=== PATIENT | female | born 1990 | race Caucasian/White ===

== ENCOUNTER 2019-09-09 15:06 | Emergency (ER) | payer BC ==
[~2019-09-09] VITALS: Ht 170.2 cm; Wt 72.6 kg
[2019-09-09 15:52] LABS: ABSOLUTE NEUTROPHILS 3.8 thou/uL (1.4-8.2); BASOPHILS 0.7 % (0.0-2.0); EOSINOPHILS 1.3 % (0.0-3.0); HEMATOCRIT 37.7 % (37.0-47.0); HEMOGLOBIN 12.8 gm/dL (12.0-15.0); LYMPHOCYTES 28.4 % (24.0-44.0); MCH 30.5 pg (26.0-34.0); MCHC 33.9 g/dL (28.0-37.0); MCV 89.8 fL (80.0-100.0); MONOCYTES 10.2 % (1.0-8.0); PLATELET COUNT 329 thou/uL (150-400); POLYS 59.4 % (36.0-66.0); RBC 4.19 mil/uL (4.20-5.00); RDW 13.7 % (10.5-14.5); WBC 6.4 thou/uL (4.0-11.0)
[2019-09-09 16:05] LABS: ALBUMIN 3.9 g/dL (3.4-5.0); ANION GAP 10 mmol/L (7-16); BUN 4 mg/dL (7-18); CALCIUM 8.7 mg/dL (8.5-10.1); CHLORIDE 99 mmol/L (98-107); CO2 25 mmol/L (21-32); CREATININE 1.4 mg/dL (0.6-1.0); DIRECT BILIRUBIN 0.1 mg/dL (<0.1-0.2); GLUCOSE 92 mg/dL (74-106); SGOT 26 U/L (15-37); SGPT 32 U/L (30-65); SODIUM 134 mmol/L (136-145); TOTAL BILIRUBIN 0.5 mg/dL (0.2-1.0); TOTAL PROTEIN 7.4 g/dL (6.4-8.2); TROPONIN-I <0.06 ng/mL (<0.06)
[2019-09-09 16:07] LABS: POTASSIUM 2.9 mmol/L (3.5-5.1)
--- NOTE | 2019-09-09 17:07 | EKG ---
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[employer] : 1990 Requested By: Adrianne Huertas Order Number: [id number] MD: Dav Moraes Measurements Intervals [place] Rate: 84 P: 66 UT: 151 QRS: 56 QRSD: 101 T: 42 QT: 409 QTc: 484 Interpretive Statements Sinus rhythm Borderline low voltage, extremity leads Borderline prolonged QT interval No previous ECG available for comparison Electronically Signed On 09-09-2019 17:06:52 CDT by Dav Moraes [email or web address] <ELECTRONICALLY SIGNED> By: Dav Moraes MD, [facility] 09/09/19 170 18 18 Dav Moraes MD, [facility] /EPI
[2019-09-09] MEDS ORDERED: POTASSIUM20 PO (18:18)
[2019-09-09] MEDS ORDERED: REGLAN 5 MG TAB5 MG PO (18:18)
[2019-09-09 18:39] VITALS: BP 102/65
== END 2019-09-09 18:40 | disposition home or self-care (01) ==
LOC: ER 15:06
PROVIDERS: Emergency Medicine
DX: R55 Syncope and collapse (principal); R51 Headache; R07.9 Chest pain, unspecified; E87.6 Hypokalemia; R11.2 Nausea with vomiting, unspecified; F17.210 Nicotine dependence, cigarettes, uncomplicated